=== PATIENT | female | born 1995 | race African-American/Black ===

== ENCOUNTER 2016-09-12 23:03 | Emergency (ER) | payer MEDICAID ==
[~2016-09-12 23:03] MED LIST: ERYTHROMYCIN O3.5 GM OD; FLEXERIL10 MG PO; MACROBID100 MG DOB; MOTRIN400 MG PO
[2016-09-12 23:07] LABS: URINE SOURCE CLEAN CATCH
[2016-09-12 23:17] LABS: URINE APPEARANCE CLOUDY; URINE BILIRUBIN NEG (NEG); URINE BLOOD NEG (NEG); URINE COLOR YELLOW; URINE GLUCOSE NEG (NEG); URINE KETONE NEG (NEG); URINE LEUKOCYTE ESTERASE TRACE (NEG); URINE NITRATE POS (NEG); URINE PH 6.5 (5-8); URINE PROTEIN NEG (NEG); URINE SPECIFIC GRAVITY 1.021 (1.003-1.035)
[2016-09-12 23:20] LABS: CULTURE INDICATED? YES; URBCS1 AUWI 0-2 /[HPF] (0-2); URINE BACTERIA AUWI 4+ (NEGATIVE); URINE SQUAMOUS EPITHELIAL CELL OCC /[HPF]
[2016-09-15 11:35] LABS: CHLAMYDIA TRACH Not Detected (Not Detected); N GONOR Not Detected (Not Detected)
== END 2016-09-12 23:56 | disposition home or self-care (01) ==
LOC: CFTX 23:03
PROVIDERS: Nurse Practitioner
DX: N76.0 Acute vaginitis (principal); N39.0 Urinary tract infection, site not specified; F17.210 Nicotine dependence, cigarettes, uncomplicated
CPT/HCPCS: 81003; 84703; 87086; 87088; 87186; 87491; 87591; 87808; 87905; 96372; 99284; J1885